=== PATIENT | female | born 1985 | race Caucasian/White ===

== ENCOUNTER 2019-05-12 02:05 | Emergency (ER) | payer BC ==
[~2019-05-12] VITALS: Ht 160 cm; Wt 74.8 kg
[2019-05-12] MEDS ORDERED: LEVO88TA5 PO (02:14)
[2019-05-12 03:00] LABS: *URINE HCG, QUAL NEGATIVE (NEGATIVE)
--- NOTE | 2019-05-12 03:07 | NUR ---
Patient discharged to home in stable conditon with taking patient home. Written and verbal after care instructions given. Patient verbalizes understanding of instructions. Walked out of ER with no distress noted.
[2019-05-12 03:08] VITALS: BP 128/79
== END 2019-05-12 03:09 | disposition home or self-care (01) ==
LOC: ER 02:12
DX: J06.9 Acute upper respiratory infection, unspecified (principal); E03.9 Hypothyroidism, unspecified; F17.200 Nicotine dependence, unspecified, uncomplicated; Z88.2 Allergy status to sulfonamides; Z79.899 Other long term (current) drug therapy
CPT/HCPCS: 84703; 87400; A4663